=== PATIENT | male | born 1955 | race Caucasian/White ===

== ENCOUNTER 2017-04-27 10:13 | Emergency (ER) | payer OTHER ==
[2017-04-27 10:24] VITALS: BP 141/83; PULSE 71; TEMP 98; BMI 29.4
[2017-04-27] MEDS ORDERED: KETOROLAC TROMETHAMINE 60 MG/2 ML VIAL IM ONE (11:09)
[2017-04-27] MEDS ORDERED: KETOROLAC TROMETHAMINE 60 MG/2 ML VIAL ONE (11:12)
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
== END 2017-04-27 11:59 | disposition home or self-care (01) ==
LOC: JERFT 10:13
PROC: 3E0233Z Introduction of Anti-inflammatory into Muscle, Percutaneous Approach (ICD-10-PCS; principal; 2017-04-27)
DX: S16.1XXA Strain of muscle, fascia and tendon at neck level, initial encounter (principal); X58.XXXA Exposure to other specified factors, initial encounter; Y93.89 Activity, other specified; Y92.9 Unspecified place or not applicable; I10 Essential (primary) hypertension
CPT/HCPCS: 72050-TC-FY; 99281-25

== ENCOUNTER 2023-09-24 14:37 | Emergency (ER) | payer OTHER ==
[2023-09-24 14:42] VITALS: BP 158/70; PULSE 82; RESP 16; TEMP 97.6; BMI 32.1
[2023-09-24 15:35] LABS: HEMATOCRIT 41.5 % (35.4-49); HEMOGLOBIN 14.2 GM/dL (11.7-16.9); MCH 31.7 pg (25.7-33.7); MCHC 34.3 g/dl (32.0-35.9); MEAN CELL VOLUME 92.7 fl (80-96); MEAN PLT VOLUME 7.3 fl (7.5-11.1); PLATELET COUNT 230 10^3/uL (134-434); RBC 4.47 M/mm3 (4.00-5.60); RDW 13.5 % (11.9-15.9); WHITE BLOOD COUNT 9.2 K/mm3 (4.0-10.0)
[2023-09-24 15:56] LABS: POTASSIUM 3.9 mmol/L (3.5-5.1)
[2023-09-24 15:58] LABS: ALBUMIN 3.6 g/dl (3.4-5.0); BLOOD UREA NITROGEN 15.2 mg/dL (7-18); CALCIUM 8.9 mg/dL (8.5-10.1)
[2023-09-24 16:01] LABS: CREATININE 1.2 mg/dL (0.55-1.3)
[2023-09-24 16:03] LABS: BILIRUBIN,TOTAL 0.6 mg/dL (0.2-1); TOT PROT 7.1 g/dl (6.4-8.2)
== END 2023-09-24 17:00 | disposition home or self-care (01) ==
LOC: JER 14:37
DX: R00.2 Palpitations (principal); R06.02 Shortness of breath; R07.89 Other chest pain
CPT/HCPCS: 36415; 71045-TC-FY; 80053; 84439; 84443; 84484; 85027; 93005; 93010; 99285-25